=== PATIENT | female | born 1940 | race Caucasian/White ===

== ENCOUNTER → 2020-04-12 | Outpatient (CLI) | payer MEDICARE, BC, OTHER ==
[~2020-04-12] MED LIST: ASPIRIN EC325 MG PO; BENAZEPRIL HCL10 MG PO; BENAZEPRIL HCL20 MG PO; CALCIUM 500 +1 EAC4 PO; CALCIUM600 MG PO; FORTEO INJ; FOSAMAX70 MG PO; HYDROCHLOROTH12.5 MG PO; HYDROCODON-ACE1 EAC4 PO; KEFLEX CAP 500500 MG PO; LASIX TAB 20 MG20 MG PO; LIPITOR10 MG PO; LO-DOSE ASPIRIN81 MG PO; MELATONIN5 M2 PO; MELOXICAM15 MG PO; MOBIC15 MG PO; NORCO 5-325 TA1 EACH PO; NORCO 7.5-3251 EACH PO; NORVASC 5 MG TAB5 MG PO; SINGULAIR10 MG PO; TEMAZEPAM15 MG PO; VITAMIN B12 PO; VITAMIN D31250 MCG PO; VITAMIN D350 MC3 PO; ZYRTEC10 M3 PO
== END ==
LOC: EXRD 13:46
DX: S32.030A Wedge compression fracture of third lumbar vertebra, initial encounter for closed fracture (principal); M51.37 Other intervertebral disc degeneration, lumbosacral region; M43.17 Spondylolisthesis, lumbosacral region; X58.XXXA Exposure to other specified factors, initial encounter
CPT/HCPCS: 70480; 72100

== ENCOUNTER → 2020-04-19 | Outpatient (CLI) | payer MEDICARE, BC, OTHER | LOC: EXRD 13:37 | DX: N20.0 Calculus of kidney (principal); K59.00 Constipation, unspecified | CPT/HCPCS: 74018 ==

== ENCOUNTER → 2020-10-05 | Day surgery (SDC) | payer MEDICARE, BC ==
[2020-10-05 07:07] LABS: HEMOGLOBIN 13.1 gm/dl (12.3-15.3); RED BLOOD COUNT 4.37 M/UL (4.00-5.10); WHITE BLOOD COUNT 7.4 K/UL (4.5-11.0)
[2020-10-05 07:55] LABS: BUN/CREATININE RATIO 28 (0-10)
== END | disposition home or self-care (01) ==
LOC: OR 06:31
PROVIDERS: Orthopaedic Surgery
DX: G56.02 Carpal tunnel syndrome, left upper limb (principal); I10 Essential (primary) hypertension; E78.5 Hyperlipidemia, unspecified; M19.90 Unspecified osteoarthritis, unspecified site; Z79.82 Long term (current) use of aspirin; Z79.899 Other long term (current) drug therapy
CPT/HCPCS: 36415; 80048; 85027; 93005; J1885; J2001; J2704; J3010; J7120

== ENCOUNTER → 2021-01-29 | Outpatient (CLI) | payer MEDICARE, OTHER | LOC: MAMO 09:30 | DX: Z12.31 Encounter for screening mammogram for malignant neoplasm of breast (principal) | CPT/HCPCS: 77063; 77067 ==

== ENCOUNTER → 2021-09-10 | Outpatient (CLI) | payer MEDICARE, BC | LOC: EXRD 13:34 | DX: M47.26 Other spondylosis with radiculopathy, lumbar region (principal) | CPT/HCPCS: 72100 ==

== ENCOUNTER → 2021-10-04 | Outpatient (CLI) | payer MEDICARE, BC | LOC: KOH-I 13:26 | DX: M47.816 Spondylosis without myelopathy or radiculopathy, lumbar region (principal); M51.37 Other intervertebral disc degeneration, lumbosacral region | CPT/HCPCS: 72148 ==

== ENCOUNTER → 2021-10-08 | Outpatient (CLI) | payer MEDICARE, BC ==
[~2021-10-08] VITALS: Ht 157.5 cm; Wt 74.4 kg
== END ==
LOC: OPSV 13:57
DX: M81.0 Age-related osteoporosis without current pathological fracture (principal)
CPT/HCPCS: 96365; J3489